=== PATIENT | female | born 1955 | race Caucasian/White ===

== ENCOUNTER 2017-02-16 11:35 | Outpatient (CLI) | payer OTHER ==
--- NOTE | 2017-02-21 16:11 | Mammography Report ---
DIGITAL SCREENING MAMMOGRAM: 02/16/2017. CLINICAL INDICATION: A 61-year-old for screening. COMPARISON: 11/2014, 09/2013, 11/2011, 03/2010, 02/2010. TECHNIQUE: Routine CC and MLO projections were obtained of the breasts. Bilateral Laterally exaggerated craniocaudal views. FINDINGS: The breasts demonstrate scattered fibroglandular densities bilaterally. No suspicious masses, clustered microcalcifications, or regions of architectural distortion are identified. IMPRESSION: Negative examination. RECOMMENDATIONS: Routine annual screening unless otherwise clinically indicated. BI RADS 1 - Negative. STANDARD QUALIFYING STATEMENT 1. This examination was reviewed with the aid of Computed-Aided Detection (CAD). 2. A negative or benign imaging report should not delay biopsy if clinically suspicious findings are present. Consider surgical consultation if warranted. More than 5% of cancers are not identified by imaging. 3. Dense breasts may obscure an underlying neoplasm. TD: 02/20/2017 16:55 CHELSEY
== END 2017-02-16 11:36 | disposition home or self-care (01) ==
LOC: DI.S 11:35
PROVIDERS: ATTEND Physician Assistant
DX: Z12.31 Encounter for screening mammogram for malignant neoplasm of breast (principal)
CPT/HCPCS: 77067

== ENCOUNTER 2017-07-17 16:15 | Outpatient (CLI) | payer OTHER ==
--- NOTE | 2017-07-18 09:18 | XRAY Report ---
THREE-VIEW LEFT FOOT: 07/17/2017 CLINICAL INDICATION: Trauma, pain. FINDINGS: AP, lateral, oblique views of the left foot demonstrate a minimally displaced fracture of the base of the distal phalanx of the great toe, best seen on the oblique projection. No other fracture is appreciated. No radiopaque foreign body is seen in the soft tissues. Small plantar and posterior calcaneal spurs are present. IMPRESSION: MINIMALLY DISPLACED FRACTURE OF THE BASE OF THE DISTAL PHALANX OF THE GREAT TOE. TD: 07/18/2017 09:16
== END 2017-07-17 16:16 | disposition home or self-care (01) ==
LOC: DI.S 16:15
PROVIDERS: ATTEND Family Medicine
DX: S92.422A Displaced fracture of distal phalanx of left great toe, initial encounter for closed fracture (principal)

== ENCOUNTER 2017-08-13 13:23 | Outpatient (CLI) | payer OTHER ==
--- NOTE | 2017-08-14 11:45 | XRAY Report ---
LEFT FOOT, THREE VIEWS: 08/13/2017 HISTORY: Followup fracture. COMPARISON: 07/17/2017. FINDINGS: There is a fracture through the lateral base of the left first distal phalanx involving the peripheral articular surface with partial healing since the preceding study. 1-2 mm of offset along the lateral articular surface is present. The left foot is otherwise stable, again showing a small amount of calcaneal spurring. IMPRESSION: HEALING LEFT FIRST DISTAL PHALANX BASE FRACTURE. SUGGEST FOLLOWUP BY DEDICATED LEFT GREAT TOE IMAGING RATHER THAN THE ENTIRE FOOT. TD: 08/14/2017 11:31
== END 2017-08-13 13:24 | disposition home or self-care (01) ==
LOC: DI.S 13:23
PROVIDERS: ATTEND Physician Assistant
DX: S97.112A Crushing injury of left great toe, initial encounter (principal); S92.422A Displaced fracture of distal phalanx of left great toe, initial encounter for closed fracture

== ENCOUNTER 2017-09-18 08:27 | Outpatient (CLI) | payer OTHER ==
--- NOTE | 2017-09-18 13:21 | XRAY Report ---
Procedure Date: 09/18/2017 Accession Number: [id number] / [id number] Procedure: XRS - Toe(s) LT CPT Code: FULL RESULT: EXAM: Toe(s) LT DATE: 09/18/2017 8:52 AM CLINICAL HISTORY: DISP FX OF DISTAL PHALANX OF UNSPECIFIED GREAT TOE COMPARISON: Left foot 08/13/2017 TECHNIQUE: 3 views. FINDINGS: Bones: Increased callus formation at the fracture of the distal phalanx. Joints: Normal. No subluxations. Soft Tissues: Normal. No soft tissue swelling. IMPRESSION: Healing fracture of the distal phalanx of the great toe. RADIA
== END 2017-09-18 08:28 | disposition home or self-care (01) ==
LOC: DI.S 08:27
PROVIDERS: ATTEND Physician Assistant
DX: S92.422D Displaced fracture of distal phalanx of left great toe, subsequent encounter for fracture with routine healing (principal)
CPT/HCPCS: 73660

== ENCOUNTER 2019-02-28 11:07 | Outpatient (CLI) | payer OTHER ==
--- NOTE | 2019-03-03 09:09 | Mammography Report ---
Reason: ROUTINE MAMMO Procedure Date: 02/28/2019 Accession Number: [id number] / [id number] Procedure: MAIDA - Screening Mammo w/Andrew CPT Code: Final Report FULL RESULT: EXAM: Screening Mammo w/Andrew DATE: 02/28/2019 11:44 AM CLINICAL HISTORY: Screening encounter. TECHNIQUE: (B) - Bilateral CC and MLO views were obtained. COMPARISON: 02/16/2017 through 02/28/2010. PARENCHYMAL PATTERN: (A) - The breast(s) demonstrate(s) scattered fibroglandular densities. FINDINGS: There are no suspicious masses, calcifications, or areas of distortion. IMPRESSION: Negative examination. BI-RADS category 1. RECOMMENDATION: (ANNUAL) - Recommend routine annual screening mammography. BI-RADS CATEGORY: (1) - Negative. STANDARD QUALIFYING STATEMENTS: 1. This examination was not reviewed with the aid of Computer-Aided Detection (CAD). 2. A negative or benign imaging report should not preclude biopsy if clinically suspicious findings are present. 3. Dense breasts may obscure an underlying neoplasm. 4. This examination was reviewed with the aid of 3D breast imaging (tomosynthesis).
== END 2019-02-28 11:08 | disposition home or self-care (01) ==
LOC: DI 11:07
PROVIDERS: ATTEND Physician Assistant
DX: Z12.31 Encounter for screening mammogram for malignant neoplasm of breast (principal)
CPT/HCPCS: 77063; 77067

== ENCOUNTER 2020-03-08 08:29 | Outpatient (CLI) | payer MEDICARE ==
--- NOTE | 2020-03-08 11:31 | Ultrasound Report ---
PROCEDURE: Carotid Doppler Complete INDICATIONS: CAROTID ARTERY STENOSIS TECHNIQUE: Color and pulse Doppler interrogation was performed of both carotid systems, with image documentation and velocity measurements. COMPARISON: None. FINDINGS: Right side: Common carotid artery peak systolic velocity: 69 cm/sec. Internal carotid artery peak systolic velocity: 89 cm/sec. Internal carotid artery end diastolic velocity: 33 cm/sec. External carotid artery peak systolic velocity: 94 cm/sec. ICA/CCA peak systolic ratio: 1.3 . Burkett scale imaging description: Minimal plaque at the bifurcation Percent internal carotid artery stenosis: Less than 50% . Vertebral artery: Flow direction is antegrade. Left side: Common carotid artery peak systolic velocity: 96 cm/sec. Internal carotid artery peak systolic velocity: 96 cm/sec. Internal carotid artery end diastolic velocity: 36 cm/sec. External carotid artery peak systolic velocity: 86 cm/sec. ICA/CCA peak systolic ratio: 1.0 . Burktet scale imaging description: Minimal plaque at the bifurcation Percent internal carotid artery stenosis: Less than 50% . Vertebral artery: Flow direction is antegrade. IMPRESSION: Bilateral, less than 50% ICA stenoses as above The estimate of stenosis included in the report of the imaging study was calculated using the NASCET method Reviewed by: Tang Storey MD on 03/08/2020 11:30 AM PST Approved by: Tang Storey MD on 03/08/2020 11:30 AM PST Station ID: [id number]
== END 2020-03-08 08:30 | disposition home or self-care (01) ==
LOC: DI 08:29
PROVIDERS: ATTEND Registered Nurse
DX: I65.23 Occlusion and stenosis of bilateral carotid arteries (principal)
CPT/HCPCS: 93880

== ENCOUNTER 2020-06-01 15:48 | Outpatient (CLI) | payer MEDICARE ==
--- NOTE | 2020-06-02 15:43 | Ultrasound Report ---
PROCEDURE: Duplex Lwr Ext Arterial LT INDICATIONS: FOOT PUSLE ABSENT TECHNIQUE: Color and pulse Doppler interrogation was performed of the left lower extremity arterial system, with image documentation. COMPARISON: None FINDINGS: Common femoral artery: 121 cm/sec, with biphasic flow. Deep femoral artery: 64 cm/sec, with biphasic and monophasic flow. Proximal superficial femoral artery: 83.2 cm/sec, with biphasic flow. Mid superficial femoral artery: 84.9 cm/sec, with biphasic flow. Distal superficial femoral artery: 106.5 cm/sec, with biphasic flow. Popliteal artery: 63.8 cm/sec, with biphasic flow. Posterior tibial artery: 67.3 cm/sec, with biphasic flow. Anterior tibial artery/dorsalis pedis: 15.6/27.2 cm/sec, with biphasic/biphasic flow. Burkett-scale imaging description: Scattered calcific and soft plaque is noted along the left lower ext remity arterial vasculature, where biphasic waveform pattern of arterial flow is present overall, janie wing no significant stenosis or obstruction. IMPRESSION: The flow velocities and waveform (overall biphasic in appearance) shows a mild degree of arterial ins ufficiency but a source of absence of pulses at the left foot is not found. Depending on the clinical status follow-up by MR angiography runoff evaluation through the aorta and lower extremity vessels b ilaterally. Reviewed by: Esteban Randle MD on 06/02/2020 3:42 PM PDT Approved by: Esteban Randle MD on 06/02/2020 3:42 PM PDT Station ID: [id number]
== END 2020-06-01 15:49 | disposition home or self-care (01) ==
LOC: DI 15:48
PROVIDERS: ATTEND Registered Nurse
DX: R09.89 Other specified symptoms and signs involving the circulatory and respiratory systems (principal)

== ENCOUNTER 2020-08-20 20:25 | Emergency (ER) | payer MEDICARE ==
[2020-08-20 20:48] LABS: BILIRUBIN,URINE NEGATIVE (NEGATIVE); GLUCOSE, URINE (UA) NEGATIVE (NEGATIVE); KETONES,URINE (UA) NEGATIVE (NEGATIVE); LEUKOCYTE ESTERASE, URINE NEGATIVE (NEGATIVE); NITRITE,URINE NEGATIVE (NEGATIVE); OCCULT BLOOD,URINE TRACE-INTA (NEGATIVE); PROTEIN,URINE NEGATIVE (NEGATIVE); UROBILINOGEN,URINE 0.2 (NORMAL) E.U./dL (NORMAL)
[2020-08-20 20:48] LABS: BASOPHILS % (AUTO) 0.4 %; EOSINOPHILS # (AUTO) 0.2 10^3/uL (0.0-0.7); EOSINOPHILS % (AUTO) 2.6 %; HCT - HEMATOCRIT 41.9 % (37.0-47.0); HGB - HEMOGLOBIN 13.9 g/dL (12.0-16.0); LYMPHOCYTES # (AUTO) 2.2 10^3/uL (1.5-3.5); LYMPHOCYTES % (AUTO) 27.7 %; MEAN CORPUSCULAR HEMOGLOBIN 31.1 pg (27.0-31.0); MEAN CORPUSCULAR HGB CONC 33.2 g/dL (32.0-36.0); MEAN CORPUSCULAR VOLUME 93.7 fL (81.0-99.0); MEAN PLATELET VOLUME 8.7 fL (7.9-10.8); MONOCYTES # (AUTO) 0.7 10^3/uL (0.0-1.0); MONOCYTES % (AUTO) 9.1 %; NEUTROPHILS # (AUTO) 4.8 10^3/uL (1.5-6.6); PLT - PLATELET COUNT 293 10^3/uL (130-450); RED BLOOD COUNT 4.47 10^6/uL (4.20-5.40); RED CELL DISTRIBUTION WIDTH 12.2 % (12.0-15.0); WHITE BLOOD COUNT 8.1 x10^3/uL (4.8-10.8)
--- NOTE | 2020-08-20 20:49 | ED Physician Documentation ---
PD HPI ABD PAIN - Stated complaint Stated Complaint: ABD PX - Chief complaint Chief Complaint: Abd Pain - History obtained from History obtained from: Patient - History of Present Illness Timing - onset: How many weeks ago (2) Timing - duration: Weeks (2) Timing - details: Abrupt onset (was traveling by car, to [facility]. [place] no camping nor groundwater drinking. Had some diarrhea at first for day or so, then with formed stools but small clumps of mucous out per rectum. No fever. Nausea at times but otherwise eating okay.), Still present Quality: Cramping, Aching Location: LUQ, Periumbilical, LLQ Radiation: No: Chest, Lower back, Left flank Improved by: BM (with small amounts stool out only.) Worsened by: Palpation. No: Eating, Moving Associated symptoms: Nausea. No: Fever, Vomiting, Diarrhea, Constipation (does not feel constipated per se, but states smaller amount of stool the past week or so.), Dysuria, Loss of appetite, Weight loss Similar symptoms before: Has not had sx before Recently seen: Not recently seen Review of Systems Constitutional: denies: Fever, Chills Nose: denies: Rhinorrhea / runny nose, Congestion Throat: denies: Sore throat Cardiac: denies: Chest pain / pressure Respiratory: denies: Cough GI: reports: Abdominal Pain, Nausea. 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 - Present Medications Home Medications: Ambulatory Orders Medication Instructions Recorded Confirmed Levothyroxine [Synthroid] 88 mcg PO DAILY 06/02/16 08/20/20 Docusate Sodium 100Mg Capsule 100 mg PO DAILY #20 cap 08/20/20 [Colace 100Mg Capsule] Naproxen [EC-Naproxen] 500 mg PO BID #14 08/20/20 hydroCHLOROthiazide [Hydrodiuril] 6.25 mg PO DAILY 08/20/20 08/20/20 - Allergies Allergies/Adverse Reactions: Allergies Allergy/AdvReac Type Severity Reaction Status Date / Time codeine AdvReac Nausea Verified 08/20/20 20:32 - Social History Does the pt smoke?: No Smoking Status: Never smoker Does the pt drink ETOH?: Yes Does the pt have substance abuse?: No - Immunizations Immunizations are current?: No PD ED PE NORMAL - Vitals Vital signs reviewed: Yes - General General: Alert and oriented X 3, No acute distress, Well developed/nourished - HEENT HEENT: Pharynx benign - Neck Neck: Supple, no meningeal sign, No adenopathy - Cardiac Cardiac: RRR, No murmur - Respiratory Respiratory: Clear bilaterally - Abdomen Abdomen: Normal bowel sounds, Soft, Non distended, No organomegaly, Other (tender LUQ and left mid abd without guarding nor percussion tender. Some tender just above umbilicus as well. Not tender RLQ nor gallbladder area.) - Female Female : Deferred - Rectal Rectal: Deferred - Back Back: No CVA TTP - Derm Derm: Normal color, Warm and dry, No rash - Neuro Neuro: Alert and oriented X 3, No motor deficit, Normal speech Results - Vitals Vitals: Vital Signs - 24 hr 08/20/20 08/20/20 08/20/20 20:34 20:36 22:36 Temperature 36.9 C 36.6 C Heart Rate 78 80 Respiratory 18 16 Rate Blood Pressure 194/86 H 155/88 H 148/82 H O2 Saturation 100 100 08/20/20 23:18 Temperature 36.6 C Heart Rate 75 Respiratory 16 Rate Blood Pressure 154/80 H O2 Saturation 100 Oxygen O2 Source Room air - Labs Labs: Laboratory Tests 08/20/20 08/20/20 08/20/20 20:34 20:43 20:43 WBC 8.1 RBC 4.47 Hgb 13.9 Hct 41.9 MCV 93.7 MCH 31.1 H MCHC 33.2 RDW 12.2 Plt Count 293 MPV 8.7 Neut # (Auto) 4.8 Lymph # (Auto) 2.2 [place] # (Auto) 0.7 Eos # (Auto) 0.2 Baso # (Auto) 0.0 Absolute Nucleated RBC 0.00 Nucleated RBC % 0.0 Sodium 138 Potassium 3.1 L Chloride 100 L Carbon Dioxide 28 Anion Gap 10.0 BUN 17 Creatinine 1.0 Estimated GFR (MDRD) 56 L Glucose 100 Calcium 9.8 Total Bilirubin 0.6 AST 20 ALT 20 Alkaline Phosphatase 57 Total Protein 8.6 H Albumin 4.5 Globulin 4.1 Albumin/Globulin Ratio 1.1 Lipase 32 Urine Color YELLOW Urine Clarity CLEAR Urine pH 6.0 Ur Specific [place] 1.010 Urine Protein NEGATIVE Urine Glucose (UA) NEGATIVE Urine Ketones NEGATIVE Urine Occult Blood TRACE-INTA Urine Nitrite NEGATIVE Urine Bilirubin NEGATIVE Urine Urobilinogen 0.2 (NORMAL) Ur Leukocyte Esterase NEGATIVE Ur Microscopic Review NOT INDICATED Urine Culture Comments NOT INDICATED PD MEDICAL DECISION MAKING - ED course Complexity details: reviewed results (CT without acute local finding. Comment on dense stool in colon. No obstruction. ), re-evaluated patient (improved symptoms. Still some cramping at times. CT with some constipation. Does not explain mucous "balls" per rectum. Perhaps some inflammatory colitis and relates to constipation. ), considered differential, d/w patient Departure - Departure Disposition: 01 Home, Self Care Clinical Impression: Abdominal pain Qualifiers: Abdominal location: generalized Qualified Code(s): R10.84 - Generalized abdominal pain Constipation Qualifiers: Constipation type: unspecified constipation type Qualified Code(s): K59.00 - Constipation, unspecified Condition: Stable Instructions: ED Abdominal Pain Unkn Cause Follow-Up: Fani Grant ARNP [Primary Care Provider] - Prescriptions: Docusate Sodium 100Mg Capsule [Colace 100Mg Capsule] 100 mg PO DAILY #20 cap Naproxen [EC-Naproxen] 500 mg PO BID #14 Comments: Your blood count and white count are normal. Your CT scan does not identify any localized area of infection or inflammation. They do comment on some dense fecal material in the colon. This could be causing some of the cramping and pains. However this would not account for the mucus output without there are some element of wall inflammation. As such I would suggest a stool softener with good hydration and also an anti- inflammatory. I wrote prescriptions for these. Stay well-hydrated and regular diet over the next few days. Add Tylenol if needed for pain or cramps. Recheck if not improved well over the next day or 2 and return if worsening. Follow-up with your primary care next week. If you have fevers, vomiting, worse pain, bloody stools, other concerns, return to the ER. Discharge Date/Time: 08/20/20 23:23
[2020-08-20 20:50] LABS: CLARITY,URINE CLEAR (CLEAR)
[2020-08-20 21:03] LABS: ALBUMIN 4.5 g/dL (3.2-5.5); ALBUMIN/GLOBULIN RATIO 1.1 (1.0-2.2); BILIRUBIN,TOTAL 0.6 mg/dL (0.2-1.0); CALCIUM 9.8 mg/dL (8.5-10.3); POTASSIUM 3.1 mmol/L (3.5-5.0); TOTAL PROTEIN 8.6 g/dL (6.7-8.2)
[2020-08-20] MEDS ORDERED: SODIUM CHLORIDE 0.9% 1,000 ML IV STA (21:17)
[2020-08-20] MEDS ORDERED: IOVERSOL 320 100 ML VIAL IVP ONE ×2 (21:31→22:00)
[2020-08-20] MEDS ORDERED: LACTULOSE 10 GM /15 ML UDC PO STA (22:52)
[2020-08-20] MEDS ORDERED: DOCUSATE SODIUM 100 MG CAPSULE PO STA (22:52)
[2020-08-20] MEDS ORDERED: KETOROLAC 30 MG/ML VIAL IVP STA (22:52)
[2020-08-20 23:24] VITALS: BP 154/80
--- NOTE | 2020-08-21 13:52 | CT Report ---
PROCEDURE: Abdomen/Pelvis W INDICATIONS: upper/mid abd pain and mucous stools CONTRAST: IV CONTRAST: Optiray 320 ml: 100 PO CONTRAST: *NO PO CONTRAST TECHNIQUE: After the administration of IV contrast, 5 mm thick sections acquired from the diaphragms to the symp hysis. 5 mm thick coronal and sagittal reformats were acquired. For radiation dose reduction, the f ollowing was used: automated exposure control, adjustment of mA and/or kV according to patient size. COMPARISON: None. FINDINGS: Image quality: Excellent. ABDOMEN: Lung bases: Lung bases are clear. Heart size is normal. A small hiatal hernia is incidentally note d. Solid organs: Liver and spleen are normal in size and enhancement. Mild diffuse fatty liver infiltr ation can be seen. Gallbladder wall does not appear thickened. Biliary system is non dilated. Velez creas enhances normally. No adrenal nodules. Kidneys demonstrate normal size and enhancement, witho ut hydronephrosis. Peritoneum and bowel: Bowel loops demonstrate normal wall thickness and caliber. No free fluid or a ir. Diverticulosis can be seen, without [place] findings of active diverticulitis. A moderate amount o f stool is seen within the proximal colon. Nodes and vessels: No retroperitoneal or mesenteric adenopathy by size criteria. Aorta and inferior vena cava are normal in size. Miscellaneous: No ventral hernias. PELVIS: Genitourinary: Bladder wall thickness is normal. This patient is status post hysterectomy. No adnex al masses can be seen. Miscellaneous: No inguinal hernias or adenopathy. Bones: No suspicious bony lesions. No vertebral body compression fractures. IMPRESSION: There is a moderate amount of stool seen within the proximal colon. Please correlate wit h clinical constipation. Mild sigmoid diverticulosis can be seen, without findings of active diverticulitis. Incidental note is made of: Small hiatal hernia Mild fatty liver infiltration 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 Note: No significant discrepancy from the preliminary report. Reviewed by: Carl Maldonado MD on 08/21/2020 12:51 PM [facility] Approved by: Carl Maldonado MD on 08/21/2020 12:51 PM [facility] Station ID: [id number]
== END 2020-08-20 23:23 | disposition home or self-care (01) ==
LOC: ED 20:25
DX: R10.84 Generalized abdominal pain (principal); K59.00 Constipation, unspecified; I10 Essential (primary) hypertension
CPT/HCPCS: 36415; 74177; 80053; 81003; 83690; 85025; 96374; 99284; A9270; Q9967; 81001; 87086

== ENCOUNTER 2020-11-03 16:35 | Outpatient (CLI) | payer MEDICARE ==
[2020-11-03 20:00] LABS: BILIRUBIN,URINE NEGATIVE (NEGATIVE); CLARITY,URINE CLEAR (CLEAR); GLUCOSE, URINE (UA) NEGATIVE (NEGATIVE); KETONES,URINE (UA) NEGATIVE (NEGATIVE); LEUKOCYTE ESTERASE, URINE TRACE (NEGATIVE); NITRITE,URINE POSITIVE (NEGATIVE); OCCULT BLOOD,URINE SMALL (NEGATIVE); PH,URINE 5.5 PH (5.0-7.5); PROTEIN,URINE TRACE mg/dL (NEGATIVE); UROBILINOGEN,URINE 0.2 (NORMAL) E.U./dL (NORMAL)
[2020-11-03 20:14] LABS: BACTERIA,URINE Many /HPF (None Seen); RBC,URINE 0-5 /HPF (0-5); SQUAMOUS EPITHELIAL CELL,UR FEW Squamous (<= Few); WBC,URINE >25 /HPF (0-5)
== END 2020-11-03 23:59 | disposition home or self-care (01) ==
LOC: LAB.S 16:35
PROVIDERS: ATTEND Emergency Medicine
DX: R30.0 Dysuria (principal)
CPT/HCPCS: 81001; 87077; 87086; 87181

== ENCOUNTER 2020-11-16 12:40 | Outpatient (CLI) | payer MEDICARE ==
[2020-11-16 14:44] LABS: BILIRUBIN,URINE NEGATIVE (NEGATIVE); GLUCOSE, URINE (UA) NEGATIVE (NEGATIVE); KETONES,URINE (UA) NEGATIVE (NEGATIVE); LEUKOCYTE ESTERASE, URINE NEGATIVE (NEGATIVE); NITRITE,URINE NEGATIVE (NEGATIVE); OCCULT BLOOD,URINE NEGATIVE (NEGATIVE); PH,URINE 7.5 PH (5.0-7.5); PROTEIN,URINE NEGATIVE (NEGATIVE); UROBILINOGEN,URINE 0.2 (NORMAL) E.U./dL (NORMAL)
[2020-11-16 14:45] LABS: CLARITY,URINE CLEAR (CLEAR)
[2020-11-16 14:49] LABS: BACTERIA,URINE None Seen /HPF (None Seen); RBC,URINE 0-5 /HPF (0-5); SQUAMOUS EPITHELIAL CELL,UR RARE Squamous (<= Few); WBC,URINE 0-3 /HPF (0-5)
== END 2020-11-16 12:41 | disposition home or self-care (01) ==
LOC: LAB.S 12:40
PROVIDERS: ATTEND Emergency Medicine
DX: R30.0 Dysuria (principal)
CPT/HCPCS: 81001; 87086

== ENCOUNTER 2021-03-20 12:15 | Outpatient (CLI) | payer MEDICARE ==
--- NOTE | 2021-03-21 15:48 | Mammography Report ---
BILATERAL DIGITAL SCREENING MAMMOGRAM 3D/2D: 03/20/2021 CLINICAL: Routine screening. Comparison is made to exams dated: 02/28/2019 mammogram, 02/16/2017 mammogram, 11/10/2014 mammogram, mammogram, 11/24/2011 mammogram, and 03/12/2010 mammogram - [facility]. There are scattered fibroglandular elements in both breasts. No significant masses, calcifications, or other findings are seen in either breast. There has been no significant interval change. IMPRESSION: NEGATIVE There is no mammographic evidence of malignancy. A 1 year screening mammogram is recommended. This exam was interpreted at Station ID: [id number]. NOTE: For mammograms, a report in lay terms will be sent to the patient. Approximately 15% of breast malignancies will not be visualized mammographically. In the management of a palpable breast mass, a negative mammogram must not discourage biopsy of a clinically suspicious lesion. Electronically Signed By: Yoni grimes/margaux:03/20/2021 22:39:05 ACR BI-RADS Category 1: Negative [id number] PARENCHYMAL PATTERN: (A) - The breast(s) demonstrate(s) scattered fibroglandular densities. BI-RADS CATEGORY: (1) - 1 RECOMMENDATION: (ANNUAL) - Recommend routine annual screening mammography. [id number] 1 year screening LATERALITY: (B)
== END 2021-03-20 12:16 | disposition home or self-care (01) ==
LOC: DI.S 12:15
PROVIDERS: ATTEND Registered Nurse
DX: Z12.31 Encounter for screening mammogram for malignant neoplasm of breast (principal)

== ENCOUNTER 2021-03-29 08:13 | Outpatient (CLI) | payer MEDICARE ==
--- NOTE | 2021-03-29 18:38 | DEXA Report ---
PROCEDURE: Dexa Spine and/or Hip INDICATIONS: OSTEOPENIA TECHNIQUE: Dual energy x-ray absorptiometry (DXA) was performed on a [employer]. Regions measur ed are the AP Spine, femoral neck, and if needed forearm. COMPARISON: . FINDINGS: Lumbar Spine: Bone Mineral Density 1.170 g/cm/cm,T score -0.1, normal Left Hip: Bone Mineral Density 0.839 g/cm/cm,T score -1.3, osteopenia Left Femoral Neck: Bone Mineral Density 0.782 g/cm/cm, T score -1.8, osteopenia (T score greater or equal to -1.0: NORMAL) (T score from -1.1 to -2.4: OSTEOPENIA) (T score less than or equal to -2.5 to: OSTEOPOROSIS) Impression: Osteopenia. Bone marrow density is decreased 3.9% interval since prior exam obtained 11/08. Patients with diagnosis of osteoporosis or osteopenia should have regular bone mineral density assess ment. For those eligible for Medicare, routine testing is allowed once every 2 years. Testing frequ ency can be increased for patients who have rapidly progressing disease or for those who are receivin g medical therapy to restore bone mass. Reviewed by: Anila Garica MD, PhD on 03/29/2021 5:[address] [facility] Approved by: Anila Garcia MD, PhD on 03/29/2021 5:[address] [facility] Station ID: [id number]
== END 2021-03-29 08:14 | disposition home or self-care (01) ==
LOC: DI 08:13
PROVIDERS: ATTEND Registered Nurse
DX: M85.89 Other specified disorders of bone density and structure, multiple sites (principal)

== ENCOUNTER 2021-04-21 11:56 | Outpatient (CLI) | payer MEDICARE ==
--- NOTE | 2021-04-21 13:22 | XRAY Report ---
PROCEDURE: Hand 3 View BILAT INDICATIONS: OSTEOARTHRITIS TECHNIQUE: 4 views of the left hand and 3 views of the right hand acquired. COMPARISON: None. FINDINGS: Bones: No acute fractures or dislocations. No suspicious bony lesions. Multifocal joint space narro wing is seen throughout the interphalangeal joints of the fingers, worst in the left fifth proximal a nd distal interphalangeal joints and the bilateral first interphalangeal joints. There appears to be ankylosis of the left fifth distal interphalangeal joint. Intra-articular lucencies in the fifth prox imal phalangeal head most likely degenerative than secondary to erosions. Soft tissues: No suspicious soft tissue calcifications. IMPRESSION: Bilateral arthritic changes throughout the fingers that is worst at the left fifth proximal interphal angeal joint and the bilateral first interphalangeal joints. 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 Findings are most likely secondary to primary osteoarthrosis, al though a chronic inflammatory arthropathy with secondary degenerative changes is not entirely exclude d. Reviewed by: Selwyn Akers MD on 04/21/2021 1:20 PM PST Approved by: Selwyn Akers MD on 04/21/2021 1:20 PM PST Station ID: [id number]
== END 2021-04-21 11:57 | disposition home or self-care (01) ==
LOC: DI.S 11:56
PROVIDERS: ATTEND Registered Nurse
DX: M19.041 Primary osteoarthritis, right hand (principal); M19.042 Primary osteoarthritis, left hand

== ENCOUNTER 2022-02-08 08:00 | Outpatient (CLI) | payer MEDICARE | END 2022-02-08 23:59 | disposition home or self-care (01) | LOC: LAB 08:00 | PROVIDERS: ATTEND Registered Nurse | DX: N30.90 Cystitis, unspecified without hematuria (principal) | CPT/HCPCS: 87086 ==

== ENCOUNTER 2022-03-31 14:51 | Outpatient (CLI) | payer MEDICARE ==
--- NOTE | 2022-03-31 17:20 | Ultrasound Report ---
PROCEDURE: Carotid Doppler Complete INDICATIONS: CAROTID ARTERY STENOSIS TECHNIQUE: Color and pulse Doppler interrogation was performed of both carotid systems, with image documentation and velocity measurements. COMPARISON: Carotid ultrasound 03/08/2020 FINDINGS: Right side: Brachial blood pressure: 175/80 mm Hg. Common carotid artery peak systolic velocity: 65 cm/sec. Internal carotid artery peak systolic velocity: 83 cm/sec. Internal carotid artery end diastolic velocity: 20 cm/sec. External carotid artery peak systolic velocity: 77 cm/sec. ICA/CCA peak systolic ratio: 1.3 . Burkett scale imaging description: Significant plaque is present Percent internal carotid artery stenosis: Less than 50% stenosis, unchanged . Vertebral artery: Flow direction is antegrade. Left side: Brachial blood pressure: 22/75 mm Hg. Common carotid artery peak systolic velocity: 76 cm/sec. Internal carotid artery peak systolic velocity: 85 cm/sec. Internal carotid artery end diastolic velocity: 29 cm/sec. External carotid artery peak systolic velocity: 82 cm/sec. ICA/CCA peak systolic ratio: 1.1 . Burkett scale imaging description: Significant plaque is present. Percent internal carotid artery stenosis: Less than 50% stenosis, unchanged . Vertebral artery: Flow direction is antegrade. IMPRESSION: Unchanged less than 50% stenosis of the internal carotid arteries bilaterally. The estimate of stenosis included in the report of the imaging study was calculated using the NASCET method Reviewed by: Therese Martines MD on 03/31/2022 5:19 PM PST Approved by: Therese Martines MD on 03/31/2022 5:19 PM PST Station ID: [id number]
== END 2022-03-31 14:52 | disposition home or self-care (01) ==
LOC: DI 14:51
PROVIDERS: ATTEND Registered Nurse
DX: I65.29 Occlusion and stenosis of unspecified carotid artery (principal)
CPT/HCPCS: 93880

== ENCOUNTER 2022-06-28 07:00 | Outpatient (CLI) | payer MEDICARE ==
[2022-06-28 14:16] LABS: BILIRUBIN,URINE NEGATIVE (NEGATIVE); GLUCOSE, URINE (UA) NEGATIVE (NEGATIVE); KETONES,URINE (UA) NEGATIVE (NEGATIVE); LEUKOCYTE ESTERASE, URINE TRACE (NEGATIVE); NITRITE,URINE POSITIVE (NEGATIVE); OCCULT BLOOD,URINE NEGATIVE (NEGATIVE); PROTEIN,URINE TRACE mg/dL (NEGATIVE); UROBILINOGEN,URINE 1 (NORMAL) E.U./dL (NORMAL)
[2022-06-28 14:23] LABS: BACTERIA,URINE Many /HPF (None Seen); CLARITY,URINE CLEAR (CLEAR); RBC,URINE 0-5 /HPF (0-5); SQUAMOUS EPITHELIAL CELL,UR FEW Squamous (<= Few)
== END 2022-06-28 23:59 | disposition home or self-care (01) ==
LOC: LAB.S 07:00
PROVIDERS: ATTEND Emergency Medicine
DX: R30.0 Dysuria (principal)
CPT/HCPCS: 81001; 87086; 87181

== ENCOUNTER 2023-02-15 05:50 | Emergency (ER) | payer MEDICARE ==
[2023-02-15 07:06] LABS: BILIRUBIN,URINE NEGATIVE (NEGATIVE); GLUCOSE, URINE (UA) NEGATIVE (NEGATIVE); KETONES,URINE (UA) NEGATIVE (NEGATIVE); LEUKOCYTE ESTERASE, URINE NEGATIVE (NEGATIVE); NITRITE,URINE NEGATIVE (NEGATIVE); OCCULT BLOOD,URINE NEGATIVE (NEGATIVE); PROTEIN,URINE TRACE mg/dL (NEGATIVE); UROBILINOGEN,URINE 0.2 (NORMAL) E.U./dL (NORMAL)
[2023-02-15 07:10] LABS: CLARITY,URINE CLEAR (CLEAR)
--- NOTE | 2023-02-15 07:16 | ED Physician Documentation ---
PD HPI ABD PAIN - Stated complaint Stated Complaint: BACK PX - Chief complaint Chief Complaint: Back Pain - History obtained from History obtained from: Patient - History of Present Illness Timing - onset: Last night (about 2 am) Timing - duration: Hours Timing - details: Abrupt onset, Still present Quality: Cramping, Aching, Pain Location: RLQ Radiation: Right flank (primarily in right flank area) Improved by: No: Laying still, Position Worsened by: No: Moving, Position, Palpation Associated symptoms: Nausea, Vomiting, Loss of appetite. No: Fever, Diarrhea, Constipation, Dysuria, Hematuria Similar symptoms before: Diagnosis (has had UTIs and pyelonephritis in the past several times. On Macrobid daily as preventive. No history of kidney stones nor aortic problems.) Recently seen: Not recently seen Review of Systems Constitutional: denies: Fever, Chills, Myalgias Nose: denies: Rhinorrhea / runny nose, Congestion Throat: denies: Sore throat Respiratory: denies: Cough GI: reports: Abdominal Pain Skin: denies: Rash, Lesions Musculoskeletal: denies: Back pain PD PAST MEDICAL HISTORY - Past Medical History Past Medical History: Yes Cardiovascular: Hypertension Respiratory: None Neuro: None Endocrine/Autoimmune: None GI: None : Chronic bladder infection, Other Other Past Medical History: Chronic UTI - Past Surgical History 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, 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 - Present Medications Home Medications: Ambulatory Orders Medication Instructions Recorded Confirmed Levothyroxine [Synthroid] 88 mcg PO DAILY 06/03/15 02/15/23 hydroCHLOROthiazide [Hydrodiuril] 6.25 mg PO DAILY 08/20/20 02/15/23 HYDROcod/ACETAM 5/325 [[place] 5/325] 1 ea PO Q6H PRN #12 tablet 02/15/23 Meloxicam [Mobic] 7.5 mg PO BID 10 Days #20 tablet 02/15/23 Nitrofurantoin Macrocrystal 50 mg PO DAILY 02/15/23 02/15/23 [Macrodantin] Ondansetron Odt [Zofran] 4 mg TL Q6H PRN #10 tablet 02/15/23 cephALEXin [Keflex] 500 mg PO TID #30 cap 02/15/23 - Allergies Allergies/Adverse Reactions: Allergies Allergy/AdvReac Type Severity Reaction Status Date / Time codeine AdvReac Nausea Verified 02/15/23 06:03 - Social History Does the pt smoke?: No Smoking Status: Never smoker Does the pt drink ETOH?: Yes Does the pt have substance abuse?: No - Immunizations Immunizations are current?: No - POLST Patient has POLST: No PD ED PE NORMAL - Vitals Vital signs reviewed: Yes - General General: Alert and oriented X 3, Well developed/nourished, Other (appears in significant pain right flank) - Cardiac Cardiac: RRR, No murmur - Respiratory Respiratory: No respiratory distress, Clear bilaterally - Abdomen Abdomen: Normal bowel sounds, Soft, Non distended, No organomegaly, Other (tender without guarding right mid abdomen, not in upper GB area itself. Moderate right CVA tenderness. No rash nor sores. ) - Back Back: No spinal TTP - Derm Derm: Normal color, Warm and dry - Neuro Neuro: Alert and oriented X 3, No motor deficit, Normal speech Results - Vitals Vitals: Vital Signs - 24 hr 02/15/23 02/15/23 02/15/23 05:58 05:59 08:50 Temperature 36.4 C L 36.4 C L Heart Rate 75 75 54 L Respiratory 18 18 20 Rate Blood Pressure 195/87 H 195/87 H O2 Saturation 100 100 96 02/15/23 02/15/23 02/15/23 10:30 12:00 13:45 Temperature 35.4 C L Heart Rate 81 59 L 64 Respiratory 18 18 18 Rate Blood Pressure 158/77 H 152/74 H 154/72 H O2 Saturation 95 98 100 Oxygen O2 Source Room air - Labs Labs: Laboratory Tests 02/15/23 02/15/23 02/15/23 06:47 06:55 06:55 WBC 10.9 H RBC 4.46 Hgb 13.8 Hct 41.7 MCV 93.5 MCH 30.9 MCHC 33.1 RDW 11.9 L Plt Count 303 MPV 8.9 Neut # (Auto) 8.5 H Lymph # (Auto) 1.5 [place] # (Auto) 0.7 Eos # (Auto) 0.1 Baso # (Auto) 0.1 Absolute Nucleated RBC 0.00 Nucleated RBC % 0.0 Sodium 140 Potassium 3.5 Chloride 104 Carbon Dioxide 28 Anion Gap 8.0 BUN 13 Creatinine 1.3 Estimated GFR (MDRD) 41 L Glucose 105 H Calcium 10.1 Total Bilirubin 0.4 AST 17 ALT 13 Alkaline Phosphatase 44 Total Protein 7.9 Albumin 4.3 Globulin 3.6 Albumin/Globulin Ratio 1.2 Lipase 394 H Urine Color YELLOW Urine Clarity CLEAR Urine pH 6.0 Ur Specific [place] <=1.005 Urine Protein TRACE Urine Glucose (UA) NEGATIVE Urine Ketones NEGATIVE Urine Occult Blood NEGATIVE Urine Nitrite NEGATIVE Urine Bilirubin NEGATIVE Urine Urobilinogen 0.2 (NORMAL) Ur Leukocyte Esterase NEGATIVE Ur Microscopic Review NOT INDICATED Urine Culture Comments NOT INDICATED - Rads (name of study) abd/pelvic CT Relevant Findings:: Prelim report reviewed (no kidney stones nor hydro. There is perinephric inflammation on right c/w pyelonephritis or paranephric infection. No abscess. ), EMP independent interpretation of test PD Medical Decision Making - ED course Complexity details: considered differential (abrupt right flank pain to consider kidney stone, infection, aortic process, ascending colitis, other processes. Can get labs, UA,a nd CT. ), d/w patient Reviewed Lab Results: The urine does not show obvious infection. She is on Macrobid daily as preventive so could be less domstrative than would otheerwise be due to that. Still consider pyelo. Lipase is elevated but not tender/pain in that area. Will also be able to eval with CT. CT gotten after pt given IV meds for pain and nausea, Zofran, toradol, Dilaudid. Improved pain, but nausea persists. Given then Inapsine with some improvement. Notes the nausea now from a vertigo sensation that she gets at times. Diazepam given 2 mg IV with much better success at lowering the nausea/vertigo. CT showing paranephric infection without stone nor hydronephritis. I would consider it infectious and dose with antibiotic as well as NSAIDs and pain meds. Rocephin given IV. She is able to take fluids PO. Pain is reduced enough for the patient and declines more pain meds. On her labs, the lipase is elevated but not LFTs and the CT shows normal pancreas and CBD. She drinks just one glass wine or so daily in evening. I reviewed her medications and the macrobid does have pancreatitis/elevated enzymes as a listed side effect, so consider that as cause and have pt stop/hold it for 1-2 weeks and discuss with PCP/Urologist. Since the UA is not showing infection itself, there will not be a urine culture to follow on abx choice, so advised pt we would need to follow degree of symptoms resolution as success on the infection or not. Departure - Departure Disposition: 01 Home, Self Care Clinical Impression: Pyelonephritis of right kidney, Elevated lipase, Right flank pain, Nausea and vomiting Condition: Stable Record reviewed to determine appropriate education?: Yes Instructions: ED Kidney Infec Female Prescriptions: cephALEXin [Keflex] 500 mg PO TID #30 cap Meloxicam [Mobic] 7.5 mg PO BID 10 Days #20 tablet HYDROcod/ACETAM 5/325 [[place] 5/325] 1 ea PO Q6H PRN #12 tablet PRN Reason: Pain Ondansetron Odt [Zofran] 4 mg TL Q6H PRN #10 tablet PRN Reason: Nausea / Vomiting Comments: Your urine does not show any obvious infection but there is CT scan does show localized inflammation around the right kidney consistent with pyelonephritis/perinephric infection. The urine itself may be not as obviously affected given the nitrofurantoin that you take daily. However does not have good penetration into tissue and so you can still develop kidney infection and such even though on it. You do have an elevation of your lipase on blood test as well. The CT scan does not show any pancreatic inflammation or abnormality. The nitrofurantoin that you take can cause inflammation of the pancreas so I wonder if it is caused by that. At this point I would have you discontinue your nitrofurantoin. You would want to have your blood test for the lipase rechecked in a week or so to see if its improved. Discuss further treatment options as preventive for your infections with your provider. Regarding the current infection, we can treat with cephalexin antibiotic which is typically effective for kidney infections. Since your urine is clear we will be able to determine exactly based on culture so we will have to go with clinical findings of how well you are improved over the next several days. I also added prescriptions for some anti-inflammatories and nausea medicine and pain medicine. I sent your prescriptions to [facility] in [place]. My narcotic instructions I am prescribing a short course of narcotic pain medication for you. These are potentially dangerous and addictive medications that should be used carefully. These medications may constipate you. Take an [id number] stool softener such as docusate twice daily with plenty of water while taking these medications. If you go 24 hours without a bowel movement, take gssl-ukk-uppodma MiraLAX, per package instructions. Do not drink or drive while taking these medications. If you received narcotic or sedating medications while in the emergency department do not drive for 24 hours. Store this medication in a safe, secure place and out of reach of children. It is a violation of federal law to give or sell this medication to another person or to use in a manner other than prescribed. The ED will not refill narcotic prescriptions, including prescriptions lost or stolen. You can dispose of unwanted medications at the [facility]'s office or at several pharmacies such as [facility]. So summary points for treatment: 1. Cephalexin 3 times daily for 10 days for the kidney infection 2. Stop your nitrofurantoin 3. Stay well-hydrated. Tylenol 500 to 650 mg 4 times daily as needed for pain and add hydrocodone if needed for worse pain. 4. Anti-inflammatory meloxicam twice daily with food for pain and inflammation. 5. Ondansetron if needed for nausea. 6. Follow-up with your primary care for repeat testing of your blood lipase and also reevaluating on your current symptoms. Discharge Date/Time: 02/15/23 14:05
[2023-02-15 07:17] LABS: ALBUMIN 4.3 g/dL (3.2-5.5); ALBUMIN/GLOBULIN RATIO 1.2 (1.0-2.2); BILIRUBIN,TOTAL 0.4 mg/dL (0.2-1.0); CALCIUM 10.1 mg/dL (8.5-10.3); CREATININE 1.3 mg/dL (0.6-1.3); POTASSIUM 3.5 mmol/L (3.5-4.5); TOTAL PROTEIN 7.9 g/dL (6.4-8.9)
[2023-02-15] MEDS ORDERED: HYDROmorphone 1 MG/ML CARPUJECT IVP STA (07:29)
[2023-02-15] MEDS ORDERED: KETOROLAC 15 MG/ML VIAL IVP STA (07:29)
[2023-02-15] MEDS ORDERED: ONDANSETRON 4 MG/2 ML VIAL IVP STA ×2 (07:29→13:01)
[2023-02-15 07:30] LABS: BASOPHILS # (AUTO) 0.1 10^3/uL (0.0-0.1); BASOPHILS % (AUTO) 0.5 %; EOSINOPHILS # (AUTO) 0.1 10^3/uL (0.0-0.7); EOSINOPHILS % (AUTO) 1.1 %; HCT - HEMATOCRIT 41.7 % (37.0-47.0); HGB - HEMOGLOBIN 13.8 g/dL (12.0-16.0); LYMPHOCYTES # (AUTO) 1.5 10^3/uL (1.5-3.5); LYMPHOCYTES % (AUTO) 13.3 %; MEAN CORPUSCULAR HEMOGLOBIN 30.9 pg (27.0-31.0); MEAN CORPUSCULAR HGB CONC 33.1 g/dL (32.0-36.0); MEAN CORPUSCULAR VOLUME 93.5 fL (81.0-99.0); MEAN PLATELET VOLUME 8.9 fL (7.9-10.8); MONOCYTES # (AUTO) 0.7 10^3/uL (0.0-1.0); MONOCYTES % (AUTO) 6.8 %; NEUTROPHILS # (AUTO) 8.5 10^3/uL (1.5-6.6); PLT - PLATELET COUNT 303 10^3/uL (130-450); RED BLOOD COUNT 4.46 10^6/uL (4.20-5.40); RED CELL DISTRIBUTION WIDTH 11.9 % (12.0-15.0); WHITE BLOOD COUNT 10.9 x10^3/uL (4.8-10.8)
[2023-02-15] MEDS ORDERED: iohexoL-300 100 ML VIAL IVP ONE (08:16)
--- NOTE | 2023-02-15 08:40 | CT Report ---
PROCEDURE: ABDOMEN/PELVIS W INDICATIONS: right flank to right mid abd pain since 2 am CONTRAST: 100ml omni 300 TECHNIQUE: After the administration of intravenous contrast, 5 mm thick sections acquired from the diaphragms to the symphysis. 5 mm thick coronal and sagittal reformats were acquired. For radiation dose reducti on, the following was used: automated exposure control, adjustment of mA and/or kV according to sly ent size. COMPARISON: 08/20/2020 FINDINGS: Image quality: Excellent. Lung bases and heart: Unremarkable. Liver: No solid mass. Gallbladder and biliary tree: Gallbladder is somewhat distended without wall thickening or calcified stones. Spleen: No splenomegaly. Pancreas: No pancreatic ductal dilation. Adrenals: No adrenal nodule. Kidneys and ureters: There is right perinephric fluid present which was not present on the previous s tudy. However, the right kidney itself is unremarkable, within normal enhancement pattern, with no st ones or hydronephrosis. Right kidney and left kidney and ureter are unremarkable. Bowel and peritoneum: No bowel distension. No pathologic free fluid. Lymph nodes: No central or retroperitoneal adenopathy. Vessels: No infrarenal aortic aneurysm. PELVIS Reproductive organs: Uterus is surgically absent. No adnexal masses.. Bladder: No abnormal wall thickening, accounting for underdistension. Pelvic lymph nodes: No pelvic adenopathy by size criteria. Bones: No aggressive osseous abnormality. There is a degree of canal stenosis at L3-L4 and L4-L5. Other: No significant ventral or inguinal hernia. IMPRESSION: 1. There is perinephric fluid adjacent to the right kidney, presumed to be an acute finding. The righ t kidney itself is unremarkable. Recommend correlation with laboratory values and clinical examinatio n for possible findings suggesting right pyelonephritis and pararenal infection. 2. No other acute findings. 3. Incidental note made of lumbar canal stenosis. 4. Remote hysterectomy. 5. Somewhat distended gallbladder. Reviewed by: Chad Hancock MD on 02/15/2023 8:39 AM PST Approved by: Chad Hancock MD on 02/15/2023 8:39 AM PST Station ID: [id number]
[2023-02-15] MEDS ORDERED: cefTRIAXone 1 GM VIAL IVP STA (08:56)
[2023-02-15] MEDS ORDERED: DROPERIDOL 5 MG/2 ML VIAL IVP STA (09:22)
[2023-02-15] MEDS ORDERED: SODIUM CHLORIDE 0.9% 1,000 ML IV STA (10:21)
[2023-02-15] MEDS ORDERED: diazePAM INJ 5 MG/ML SYRINGE IVP STA (13:29)
[2023-02-15 13:52] VITALS: BP 154/72; O2SAT 100
== END 2023-02-15 14:05 | disposition home or self-care (01) ==
LOC: ED 05:50
DX: N12 Tubulo-interstitial nephritis, not specified as acute or chronic (principal); R74.8 Abnormal levels of other serum enzymes; I10 Essential (primary) hypertension
CPT/HCPCS: 36415; 74177; 80053; 81003; 83690; 85025; 96374; 96375; 99284; 99285; J1170; Q9967; 81001; 87086

== ENCOUNTER 2023-03-26 22:27 | Emergency (ER) | payer MEDICARE ==
--- NOTE | 2023-03-26 23:07 | ED Physician Documentation ---
PD HPI BACK PAIN - Stated complaint Stated Complaint: BACK PAIN - Chief complaint Chief Complaint: Back Pain - History obtained from History obtained from: Patient - Additional information Additional information: HPI from patient. Patient complains of right low back pain that radiates to her right hip and down the anterior aspect of her upper leg to mid-thigh. This began last night while at rest. She denies injury although she says she was undertaking more activity than typical 2 days ago including some heavy lifting. Patient says she has recurrent sciatic back pain but this has always been left low back pain. She does not feel any similarity regarding tonight symptoms compared to her recurrent left sided back pain.Patient saw her chiropractor earlier today which did not result in any improvement in her symptoms.The pain is distinctly worse with movement involving the lower back and the right leg at the hip. The pain is also worse with weight-bearing including standing as well as simply sitting. Denies fever, dysuria, urinary frequency. Denies urinary/bowel incontinence, denies numbness. She does not note specific weakness although she did feel like her RLE was "buckling from under me" (per patient) with weight-bearing this evening. She is BIBA and received IV toradol en route by EMS without improvement. 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 - Present Medications Home Medications: Ambulatory Orders Medication Instructions Recorded Confirmed Levothyroxine [Synthroid] 88 mcg PO DAILY 06/03/15 03/26/23 hydroCHLOROthiazide [Hydrodiuril] 12.5 mg PO DAILY 08/20/20 03/27/23 HYDROcod/ACETAM 5/325 [[place] 5/325] 1 ea PO Q6H PRN #12 tablet 02/15/23 Meloxicam [Mobic] 7.5 mg PO BID 10 Days #20 tablet 02/15/23 Aspirin [Aspirin EC] 81 mg PO DAILY 03/26/23 03/26/23 - Allergies Allergies/Adverse Reactions: Allergies Allergy/AdvReac Type Severity Reaction Status Date / Time codeine AdvReac Emesis Verified 03/26/23 22:45 - Social History Does the pt smoke?: No Smoking Status: Never smoker Does the pt drink ETOH?: Yes Does the pt have substance abuse?: No - Immunizations Immunizations are current?: No - POLST Patient has POLST: No PD ED PE NORMAL - Vitals Vital signs reviewed: Yes - General General: Alert and oriented X 3, Well developed/nourished, Other (appears uncomfortable at rest and obvious painful discomfort with movement involving lower back and/or RLE) - Cardiac Cardiac: RRR, No murmur - Respiratory Respiratory: No respiratory distress, Clear bilaterally - Abdomen Abdomen: Soft, Non distended, Other (RLQ TTP without guarding or rebound) - Back Back: No CVA TTP, No spinal TTP - Derm Derm: Normal color, Warm and dry, Other (faint rash lower right flank which patient says has been there for many years) - Neuro Neuro: Alert and oriented X 3, No motor deficit (5/5 RLE dorsi/plantarflexion. ), No sensory deficit (LTS intact BLE) Results - Vitals Vitals: Vital Signs - 24 hr 03/26/23 03/26/23 03/27/23 22:38 23:30 00:00 Temperature 37.3 C Heart Rate 69 83 88 Respiratory 17 17 16 Rate Blood Pressure 193/91 H 167/71 H 154/66 H O2 Saturation 100 100 100 03/27/23 03/27/23 03/27/23 02:25 03:00 05:00 Temperature Heart Rate 88 86 94 Respiratory 18 16 Rate Blood Pressure 170/67 H 150/70 H 138/73 H O2 Saturation 100 96 95 03/27/23 03/27/23 03/27/23 05:32 07:28 09:21 Temperature Heart Rate 74 95 83 Respiratory 15 16 Rate Blood Pressure 145/80 H 161/81 H 170/79 H O2 Saturation 95 95 100 Oxygen O2 Source Room air - Labs Labs: Laboratory Tests 03/26/23 03/26/23 03/26/23 00:00 23:39 23:39 WBC 10.3 RBC 4.51 Hgb 14.0 Hct 42.2 MCV 93.6 MCH 31.0 MCHC 33.2 RDW 12.0 Plt Count 299 MPV 8.9 Neut # (Auto) 8.3 H Lymph # (Auto) 1.2 L [place] # (Auto) 0.7 Eos # (Auto) 0.1 Baso # (Auto) 0.0 Absolute Nucleated RBC 0.00 Nucleated RBC % 0.0 Sodium 140 Potassium 3.5 Chloride 104 Carbon Dioxide 26 Anion Gap 10.0 BUN 16 Creatinine 0.8 Estimated GFR (MDRD) 71 L Glucose 120 H Calcium 9.2 Total Bilirubin 0.3 AST 16 ALT 12 Alkaline Phosphatase 47 Total Protein 7.6 Albumin 4.2 Globulin 3.4 Albumin/Globulin Ratio 1.2 Lipase 34 Urine Color YELLOW Urine Clarity CLEAR Urine pH 7.0 Ur Specific [place] 1.015 Urine Protein TRACE Urine Glucose (UA) NEGATIVE Urine Ketones NEGATIVE Urine Occult Blood NEGATIVE Urine Nitrite NEGATIVE Urine Bilirubin NEGATIVE Urine Urobilinogen 0.2 (NORMAL) Ur Leukocyte Esterase NEGATIVE Ur Microscopic Review NOT INDICATED Urine Culture Comments NOT INDICATED - Rads (name of study) CT A/P with IV contrast Relevant Findings:: Prelim report reviewed, See rad report PD Medical Decision Making - ED course Complexity details: reviewed results, re-evaluated patient, considered differential, d/w patient ED course: Unremarkable results on CBC, ER abdominal panel, urinalysis. On exam, she is presently tender in the right lower quadrant given her chief complaint is right lower back pain rating to the right hip and down the right anterior thigh. Thus, a CT of the abdomen pelvis with intravenous contrast is undertaken. However, there are no concerning or diagnostic findings on this study. Patient is in obvious painful discomfort at rest on my initial exam, significantly worse with movement involving her lower back. She had a similar presentation in the last month testing at that time was mostly unremarkable, although right perinephric edema and stranding was found and that she was treated for possible pyelonephritis despite urinalysis not reflective of UTI. She did not have UTI symptoms at that time, and is not certain if the antibiotic (cephalexin) resulted in improvement symptoms. However, she says she did feel significantly better 2 to 3 days into the antibiotic course. She says that the medication given on this previous visit caused significant nausea and vomiting for at least 8 hours. In reviewing the chart, I see that she was given 1 mg of IV Dilaudid, which would be the most likely culprit of those symptoms. Along these lines, she is very reluctant to have narcotic/opiate pain medication but agrees that at this time her pain is beyond control of [id number]-[id number] analgesics. She says she already took 1 g of acetaminophen earlier tonight without relief. She also took 10 mg Valium p.o. which she had prescribed in the past for vertigo. We discussed options for analgesia and I recommendation was low-dose morphine IV along with ondansetron, with plan to titrate up the morphine according to her symptoms as well as side effects. She had modest and transient improvement with 2 mg IV morphine, required redosing and, after we discussed brief dosing, she is given 4 mg IV morphine. The second dose similarly brought modest and transient improvement. As she further describes her symptoms, and in light of the unremarkable tests thus far, and increasing suspicion of nerve impingement of the lower back such as from spinal stenosis. She was thus given 10 mg IV Decadron, Lidoderm patch is placed on her lower back, and she is also given 10 mg p.o. Flexeril. Unfortunately, none of these had the desired effect of adequate pain relief. She was able to stand and pivot to the bedside commode, but she tells me that the pain is actually worse than when she first arrived and was, once again, noticeably worse when she was sitting on the commode. Plan is to obtain lumbar MRI later today when available and reevaluate. Care of patient is turned over to oncoming ED physician (Dr. Swain) at end of my shift
[2023-03-26] MEDS ORDERED: iohexoL-300 100 ML VIAL ONE (23:34)
[2023-03-26] MEDS: ONDANSETRON 4 MG/2 ML VIAL IVP STA (23:42)
[2023-03-26] MEDS: MORPHINE 2 MG/ML CARPUJECT IVP STA (23:42)
[2023-03-26] MEDS: SODIUM CHLORIDE 0.9% 1,000 ML IV STA (23:43)
[2023-03-26 23:44] LABS: BASOPHILS % (AUTO) 0.4 %; EOSINOPHILS # (AUTO) 0.1 10^3/uL (0.0-0.7); EOSINOPHILS % (AUTO) 1.3 %; HCT - HEMATOCRIT 42.2 % (37.0-47.0); LYMPHOCYTES # (AUTO) 1.2 10^3/uL (1.5-3.5); LYMPHOCYTES % (AUTO) 11.7 %; MEAN CORPUSCULAR HGB CONC 33.2 g/dL (32.0-36.0); MEAN CORPUSCULAR VOLUME 93.6 fL (81.0-99.0); MEAN PLATELET VOLUME 8.9 fL (7.9-10.8); MONOCYTES # (AUTO) 0.7 10^3/uL (0.0-1.0); MONOCYTES % (AUTO) 6.4 %; NEUTROPHILS # (AUTO) 8.3 10^3/uL (1.5-6.6); PLT - PLATELET COUNT 299 10^3/uL (130-450); RED BLOOD COUNT 4.51 10^6/uL (4.20-5.40); WHITE BLOOD COUNT 10.3 x10^3/uL (4.8-10.8)
[2023-03-27 00:01] LABS: ALBUMIN 4.2 g/dL (3.2-5.5); ALBUMIN/GLOBULIN RATIO 1.2 (1.0-2.2); BILIRUBIN,TOTAL 0.3 mg/dL (0.2-1.0); CALCIUM 9.2 mg/dL (8.5-10.3); CREATININE 0.8 mg/dL (0.6-1.3); POTASSIUM 3.5 mmol/L (3.5-4.5); TOTAL PROTEIN 7.6 g/dL (6.4-8.9)
[2023-03-27 00:06] LABS: BILIRUBIN,URINE NEGATIVE (NEGATIVE); GLUCOSE, URINE (UA) NEGATIVE (NEGATIVE); KETONES,URINE (UA) NEGATIVE (NEGATIVE); LEUKOCYTE ESTERASE, URINE NEGATIVE (NEGATIVE); NITRITE,URINE NEGATIVE (NEGATIVE); OCCULT BLOOD,URINE NEGATIVE (NEGATIVE); PROTEIN,URINE TRACE mg/dL (NEGATIVE); UROBILINOGEN,URINE 0.2 (NORMAL) E.U./dL (NORMAL)
[2023-03-27 00:07] LABS: CLARITY,URINE CLEAR (CLEAR)
[2023-03-27] MEDS: iohexoL-300 100 ML VIAL IVP ONE (00:27)
--- NOTE | 2023-03-27 01:19 | CT Report ---
PROCEDURE: Abdomen/Pelvis W INDICATIONS: RLQ pain/tenderness CONTRAST: omni 300, 100mls TECHNIQUE: After the administration of intravenous contrast, a CT scan of the abdomen and pelvis was performed. Images were recorded and evaluated at appropriate window settings. Reformats: coronal and sagittal. F or radiation dose reduction, the following was used: automated exposure control, adjustment of mA and /or kV according to patient size. COMPARISON: CT abdomen pelvis 02/15/2023. FINDINGS: Image quality: Excellent. Lung bases and heart: Mild atelectasis. No pleural effusion. Liver: No solid mass. Hepatic steatosis. Gallbladder and biliary tree: No radiopaque stones or wall thickening. No biliary dilation. Spleen: No splenomegaly. Pancreas: No pancreatic ductal dilation. Adrenals: No adrenal nodule. Kidneys and ureters: No hydronephrosis. No renal cystic lesion which requires follow up. No solid mas s. Soft edema adjacent to the right kidney. Kidneys enhance symmetrically. Tiny right renal cyst. Bowel and peritoneum: No bowel distension. No pathologic free fluid. Diverticulosis. The appendix is not dilated. Lymph nodes: No central or retroperitoneal adenopathy. Vessels: No infrarenal aortic aneurysm. PELVIS Reproductive organs: Uterus is absent. Bladder: No stone. Pelvic lymph nodes: No pelvic adenopathy by size criteria. Bones: No aggressive osseous abnormality. Other: No significant ventral or inguinal hernia. IMPRESSION: No acute abnormality identified. No free fluid. The appendix is not dilated. Reviewed by: Wei Singh MD on 03/27/2023 1:17 AM RUST Approved by: Wei Singh MD on 03/27/2023 1:17 AM PST Station ID: [id number]
[2023-03-27] MEDS: CYCLOBENZAPRINE 10 MG TABLET PO STA ×2 (02:19→11:49)
[2023-03-27] MEDS: DEXAMETHASONE 10 MG/ML VIAL IVP STA (02:20)
[2023-03-27] MEDS: MORPHINE 2 MG/ML CARPUJECT IVP STA ×2 (02:20→09:10)
[2023-03-27] MEDS: oxyCODONE 5 MG TABLET PO STA ×2 (06:22→11:49)
[2023-03-27] MEDS: LIDOCAINE PATCH 4% TOP STA (06:24)
[2023-03-27] MEDS: ONDANSETRON 4 MG/2 ML VIAL IVP STA (06:24)
--- NOTE | 2023-03-27 09:39 | ED Physician Documentation ---
ED Addendum - Addendum Addendum: 03/27/23 Patient received in signout. She presented with lower back pain which has been intractable. Awaiting MRI. I evaluated the patient at the bedside this morning. She reports that the pain seems to be more localized in the center now. Good distal pulses. Able to release legs bilaterally. Patient requesting additional pain medication. Reports that the morphine did help her. Patient underwent MRI which does not show any emergent findings. IMPRESSION: 1. No acute/emergent process. 2. Multilevel degenerative disc and facet disease, in addition to epidural lipomatosis and ligamentum flavum hypertrophy. 3. Multilevel canal stenoses, worst at L4-L5 where there is moderate canal stenosis. 4. Lateral recess stenosis at L4-L5 and L5-S1 as described above with associated nerve root compression/abutment as above. Recommend correlation with clinical symptoms to ascertain relevance of these findings. 5. Five lumbar type vertebral bodies were presumed for the purposes of the current report. Correlation with plainfilms for numbering purposes is recommended prior to any lumbar spinal intervention. She was able to ambulate with a walker here and pain it does appear to be improved. Discussed continued treatment for low back pain and sciatica. Understands the importance of close follow-up.Patient was given copies of her MRI as well as CT results. Patient understands concerning symptoms to return for. Departure - Departure Disposition: 01 Home, Self Care Clinical Impression: Low back pain, Sciatica Condition: Stable Instructions: ED Sciatica Prescriptions: predniSONE [Deltasone] 20 mg PO [id number] #21 tab Cyclobenzaprine [Flexeril] 10 mg PO TID PRN #20 tablet PRN Reason: Spasms Lidocaine Patch 5% [Lidoderm Patch] 1 patch TOP DAILY PRN #10 patch PRN Reason: pain Oxycodone HCl/Acetaminophen [Percocet 5-325 mg Tablet] 1 each PO Q6H PRN #14 tablet PRN Reason: pain Comments: Your MRI shows some compression on nerve roots causing symptoms of sciatica. I am sending prescriptions for narcotic pain medication, muscle relaxers, lidocaine patch and a course of steroids to [facility] in [place]. I would recommend follow-up with your primary care provider as sometimes she may need physical therapy to help you with your pain. I am prescribing a short course of narcotic pain medication for you. These are potentially dangerous and addictive medications that should be used carefully. These medications may constipate you. Take an dgxf-atl-ssneneh stool softener (docusate) twice daily with plenty of water while taking these medications. If you go 24 hours without a bowel movement, take cbgi-pcr-stegtuh miralax, per package instructions. Do not drink or drive while taking these medications. If you received narcotic or sedating medications while in the emergency department, do not drive for 24 hours. Store this medication in a safe, secure place and out of reach of children. It is a violation of federal law to give or sell this medication to another person or to use in a manner other than prescribed. The ED will not refill narcotic prescriptions, including prescriptions lost or stolen. To dispose of unwanted medications: 1. [facility] [address] in [place] has a medication drop box. They accept prescription medications (in pill form) Sunday through Sunday 9:00 a.m. to 5:00 p.m. 2. The [facility] [employer] accepts prescription medications (in pill form only) for disposal year round. Call for more information. 3. Contact the [facility] for the next [employer] sponsored prescription drug collection event. , [phone], or [phone]; Note that many narcotic pain relievers also contain Tylenol/acetaminophen. Please ensure that your total dose of acetaminophen from all sources does not exceed 3 g (3000 mg) per day. MRI IMPRESSION: 1. No acute/emergent process. 2. Multilevel degenerative disc and facet disease, in addition to epidural lipomatosis and ligamentum flavum hypertrophy. 3. Multilevel canal stenoses, worst at L4-L5 where there is moderate canal stenosis. 4. Lateral recess stenosis at L4-L5 and L5-S1 as described above with associated nerve root compression/abutment as above. Recommend correlation with clinical symptoms to ascertain relevance of these findings. 5. Five lumbar type vertebral bodies were presumed for the purposes of the current report. Correlation with plainfilms for numbering purposes is recommended prior to any lumbar spinal intervention. Discharge Date/Time: 03/27/23 13:20
--- NOTE | 2023-03-27 11:03 | MRI Report ---
PROCEDURE: LUMBAR SPINE WO INDICATIONS: severe low back pain, RLE weakness TECHNIQUE: Noncontrast sagittal T1 spin echo and T2 fast echo, sagittal STIR, axial T1 and T2 fast spin echo thr ough the lumbar spine. In cases with scoliosis, additional coronal T2 fast spin echo may be performe d. COMPARISON: None. FINDINGS: Image quality: Degraded by motion artifact. Alignment and Curvature: No plain films are available for comparison. Thus, for numbering purposes, 5 lumbar type vertebral bodies will be presumed for the current report. This should be confirmed with plain film correlation prior to any lumbar spinal intervention. There is loss of normal lumbar lordo sis. Bone Marrow: Marrow is of normal overall signal. No acute vertebral body compression fractures. Mi ld reactive signal throughout the endplates of the lumbar lower thoracic spine. Spinal Cord: Conus medullaris terminates at the T12-L1 disc space level. Visualized cord demonstrat es normal signal and size. Paraspinous Soft Tissues: No paravertebral masses. T12-L1: Mild disc desiccation and diffuse disc bulge. Mild facet and ligament flavum hypertrophy. No significant canal nor foraminal stenosis. L1-L2: Mild disc desiccation and diffuse disc bulge with small superimposed right posterolateral p rotrusion. Mild facet and ligament flavum hypertrophy. Mild epidural lipomatosis. Mild canal stenosis . Mild right foraminal stenosis. No left foraminal stenosis. L2-L3: Mild disc desiccation. Mild facet and ligament flavum hypertrophy. Mild epidural lipomatosi s. Mild canal stenosis. Mild bilateral foraminal stenosis. L3-L4: Mild disc height loss and desiccation. Mild diffuse disc bulge. Mild facet and ligament flav um hypertrophy. Mild upper lipomatosis. Mild canal stenosis. Moderate bilateral foraminal stenosis. L4-L5: Mild disc desiccation and diffuse disc bulge. Mild facet and ligament flavum hypertrophy. Mo derate canal stenosis. Moderate subarticular foraminal stenosis bilaterally. Lateral recess stenosis is present bilaterally with possible L5 nerve root compression bilaterally. L5-S1: Mild disc desiccation and diffuse disc bulge with superimposed small right posterolateral pr otrusion. Mild bilateral facet hypertrophy. Mild canal stenosis. Moderate subarticular foraminal sten osis bilaterally. The protrusion abuts the right S1 nerve root within the lateral recess. IMPRESSION: 1. No acute/emergent process. 2. Multilevel degenerative disc and facet disease, in addition to epidural lipomatosis and ligamentum flavum hypertrophy. 3. Multilevel canal stenoses, worst at L4-L5 where there is moderate canal stenosis. 4. Lateral recess stenosis at L4-L5 and L5-S1 as described above with associated nerve root compressi on/abutment as above. Recommend correlation with clinical symptoms to ascertain relevance of these fi ndings. 5. Five lumbar type vertebral bodies were presumed for the purposes of the current report. Correlati on with plainfilms for numbering purposes is recommended prior to any lumbar spinal intervention. Reviewed by: Katlyn Garner MD on 03/27/2023 11:01 AM PST Approved by: Katlyn Garner MD on 03/27/2023 11:01 AM PST Station ID: [id number]
[2023-03-27] MEDS: KETOROLAC 15 MG/ML VIAL IVP STA (11:49)
[2023-03-27 12:56] VITALS: BP 168/70; O2SAT 98
== END 2023-03-27 13:20 | disposition home or self-care (01) ==
LOC: EDUNIT# → ED 22:27
DX: M54.50 Low back pain, unspecified (principal); M54.30 Sciatica, unspecified side; I10 Essential (primary) hypertension
CPT/HCPCS: 36415; 72148; 74177; 80053; 81003; 83690; 85025; 96374; 96375; 96376; 99284; A9270; Q9967; 81001; 87086

== ENCOUNTER 2023-05-27 00:58 | Emergency (ER) | payer MEDICARE ==
[2023-05-27 01:18] VITALS: BP 203/81; O2SAT 99
[2023-05-27 01:33] LABS: BILIRUBIN,URINE NEGATIVE (NEGATIVE); GLUCOSE, URINE (UA) 100 mg/dL (NEGATIVE); KETONES,URINE (UA) NEGATIVE (NEGATIVE); LEUKOCYTE ESTERASE, URINE LARGE (NEGATIVE); NITRITE,URINE POSITIVE (NEGATIVE); OCCULT BLOOD,URINE LARGE (NEGATIVE); PROTEIN,URINE 100 mg/dL (NEGATIVE); UROBILINOGEN,URINE 1 (NORMAL) E.U./dL (NORMAL)
[2023-05-27 01:34] LABS: CLARITY,URINE CLEAR (CLEAR)
[2023-05-27 01:57] LABS: BACTERIA,URINE Rare /HPF (None Seen); RBC,URINE 0-5 /HPF (0-5); SQUAMOUS EPITHELIAL CELL,UR RARE Squamous (<= Few); WBC CLUMPS,URINE PRESENT
--- NOTE | 2023-05-27 02:57 | ED Physician Documentation ---
PD HPI FEMALE - Stated complaint Stated Complaint: - Chief complaint Chief Complaint: UTI - History obtained from History obtained from: Patient - History of Present Illness Timing - onset: Enter time (0800), Yesterday Timing - duration: Days (1) Timing - details: Gradual onset, Still present Associated symptoms: Dysuria, Urinary frequency Contributing factors: Other (hx of frequent UTI) Similar symptoms before: Diagnosis (UTI) Recently seen: Not recently seen - Additional information Additional information: Viktoriya De La Cruz is a 68-year-old female with a history of frequent urinary tract infections who has developed symptoms of urinary tract infection yesterday morning. She is taken some Pyridium and has not had relief as yet. She is usually able to take Cipro which works well for her. Review of Systems Constitutional: denies: Fever, Chills, Myalgias Ears: denies: Ear pain Nose: denies: Congestion Throat: denies: Sore throat Respiratory: denies: Cough GI: reports: Nausea. denies: Abdominal Pain, Vomiting, Constipation, Diarrhea : reports: Dysuria, Frequency Skin: denies: Rash Musculoskeletal: denies: Neck pain, Back pain, Extremity pain Neurologic: denies: Generalized weakness, Focal weakness, Numbness PD PAST MEDICAL HISTORY - Past Medical History Cardiovascular: Hypertension Respiratory: None Neuro: None Endocrine/Autoimmune: HyPOthyroidism GI: None : Chronic bladder infection, Other - Past Surgical History Past Surgical History: Yes /[employer]: section, 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 - Present Medications Home Medications: Ambulatory Orders Medication Instructions Recorded Confirmed Levothyroxine [Synthroid] 88 mcg PO DAILY 06/03/15 03/26/23 hydroCHLOROthiazide [Hydrodiuril] 12.5 mg PO DAILY 08/20/20 03/27/23 HYDROcod/ACETAM 5/325 [Lake 5/325] 1 ea PO Q6H PRN #12 tablet 02/15/23 Meloxicam [Mobic] 7.5 mg PO BID 10 Days #20 tablet 02/15/23 Aspirin [Aspirin EC] 81 mg PO DAILY 03/26/23 03/26/23 Cyclobenzaprine [Flexeril] 10 mg PO TID PRN #20 tablet 03/27/23 Lidocaine Patch 5% [Lidoderm Patch] 1 patch TOP DAILY PRN #10 patch 03/27/23 Oxycodone HCl/Acetaminophen 1 each PO Q6H PRN #14 tablet 03/27/23 [Percocet 5-325 mg Tablet] predniSONE [Deltasone] 20 mg PO [id number] #21 tab 03/27/23 Ciprofloxacin HCl [Cipro] 500 mg PO BID #14 tablet 05/27/23 - Allergies Allergies/Adverse Reactions: Allergies Allergy/AdvReac Type Severity Reaction Status Date / Time codeine AdvReac Emesis Verified 05/27/23 02:01 - Social History Does the pt smoke?: No Smoking Status: Never smoker Does the pt drink ETOH?: Yes Does the pt have substance abuse?: No - Immunizations Immunizations are current?: No - POLST Patient has POLST: No PD ED PE NORMAL - Vitals Vital signs reviewed: Yes (hypertensive ) - General General: Alert and oriented X 3, No acute distress, Well developed/nourished - HEENT HEENT: Atraumatic, PERRL, EOMI - Respiratory Respiratory: No respiratory distress - Back Back: No CVA TTP, No spinal TTP - Derm Derm: Normal color, Warm and dry, No rash - Extremities Extremities: No deformity, No edema - Neuro Neuro: Alert and oriented X 3, 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, No motor deficit, No sensory deficit, Normal speech Eye Opening: Spontaneous Motor: Obeys Commands Verbal: Oriented GCS Score: 15 - Psych Psych: Normal mood, Normal affect Results - Vitals Vitals: Vital Signs - 24 hr 05/27/23 01:13 Temperature 36.3 C L Heart Rate 78 Respiratory 18 Rate Blood Pressure 203/81 H O2 Saturation 99 Oxygen O2 Source Room air - Labs Labs: Laboratory Tests 05/27/23 01:17 Urine Color ORANGE Urine Clarity CLEAR Urine pH 6.0 Ur Specific [place] <=1.005 Urine Protein 100 H Urine Glucose (UA) 100 H Urine Ketones NEGATIVE Urine Occult Blood LARGE H Urine Nitrite POSITIVE H Urine Bilirubin NEGATIVE Urine Urobilinogen 1 (NORMAL) Ur Leukocyte Esterase LARGE H Urine RBC 0-5 Urine WBC 11-25 H Urine WBC Clumps PRESENT Ur Squamous Epith Cells RARE Squamous Urine Bacteria Rare Urine Culture Comments INDICATED PD Medical Decision Making - ED course Complexity details: reviewed old records, reviewed results, re-evaluated patient, considered differential, d/w patient Reviewed Lab Results: We reviewed a urinalysis showing a specific gravity 1.005 there was protein glucose occult blood nitrite and leukocyte Estrace positive positive. Urine white blood cells were 11-25 white blood cell clumps were present and rare bacteria were present. The specimen did make the grade for culture.I interpreted these laboratory findings to indicate the patient has urinary tract infection with symptoms. ED course: 68-year-old female with urinary urgency frequency dysuria and a urinalysis consistent with acute urinary tract infection. treatment is indicated and she is administered Cipro 500 mg here in the emergency department. Most recent urine culture is from last year and was a sensitive E. coli. Departure - Departure Disposition: Home, Self Care Clinical Impression: Urinary tract infection Qualifiers: Urinary tract infection type: acute cystitis Hematuria presence: without hematuria Qualified Code(s): N30.00 - Acute cystitis without hematuria Condition: Stable Instructions: ED UTI Cystitis Female Follow-Up: Fani Grant ARNP [Primary Care Provider] - Prescriptions: Ciprofloxacin HCl [Cipro] 500 mg PO BID #14 tablet Comments: Viktoriya, today it looks like you have another urinary tract infection. I have E scribed some Cipro to the [facility] in [place]. Forms: PCP List Discharge Date/Time: 05/27/23 03:13
[2023-05-27] MEDS: CIPROFLOXACIN 250 MG TABLET PO STA (03:10)
== END 2023-05-27 03:13 | disposition home or self-care (01) ==
LOC: ED 00:58
DX: N30.00 Acute cystitis without hematuria (principal); I10 Essential (primary) hypertension
CPT/HCPCS: 81001; 87077; 87086; 87181; 99283; A9270

== ENCOUNTER 2023-06-26 12:51 | Outpatient (CLI) | payer MEDICARE ==
--- NOTE | 2023-06-27 10:52 | Mammography Report ---
BILATERAL DIGITAL SCREENING MAMMOGRAM 3D/2D: 06/26/2023 CLINICAL: Routine screening. Comparison is made to exams dated: 03/20/2021 mammogram, 02/28/2019 mammogram, 02/16/2017 mammogram, 11/10/2014 mammogram, and 10/02/2013 mammogram - [facility]. There are scattered areas of fibroglandular density in both breasts (category b / 25%-50% glandular t issue). There is a new oval low density asymmetry with an obscured margin in the right breast at 11 o'clock m iddle depth. No other significant masses, calcifications, or other findings are seen in either breast. IMPRESSION: INCOMPLETE: NEEDS ADDITIONAL IMAGING EVALUATION The new oval low density asymmetry in the right breast is indeterminate. Additional views with possi ble ultrasound are recommended. Based on the Tyrer Cuzick model (a risk assessment model) the patient's lifetime risk is 4.4% and her 10 year risk is 2.4%. According to the ACR, ACS, and NCCN guidelines, an annual breast MRI exam uli g with mammogram is recommended if the patient's lifetime risk is 20% or greater. This exam was interpreted at Station ID: [id number]. NOTE: For mammograms, a report in lay terms will be sent to the patient. Approximately 15% of breast malignancies will not be visualized mammographically. In the management of a palpable breast mass, a negative mammogram must not discourage biopsy of a clinically suspicious lesion. Electronically Signed By: Vanita morales/penrad:06/26/2023 16:58:12 ACR BI-RADS Category 0: Incomplete 3340F PARENCHYMAL PATTERN: (A) - The breast(s) demonstrate(s) scattered fibroglandular densities. BI-RADS CATEGORY: (0) - 0 Mammo and [place] [id number] Immediate follow-up LATERALITY: (B)
== END 2023-06-26 12:52 | disposition home or self-care (01) ==
LOC: DI 12:51
PROVIDERS: ATTEND Registered Nurse
DX: Z12.31 Encounter for screening mammogram for malignant neoplasm of breast (principal); R92.8 Other abnormal and inconclusive findings on diagnostic imaging of breast; R92.323 Mammographic fibroglandular density, bilateral breasts

== ENCOUNTER 2023-07-31 10:47 | Outpatient (CLI) | payer MEDICARE ==
--- NOTE | 2023-08-01 09:13 | Mammography Report ---
UNILATERAL RIGHT DIGITAL DIAGNOSTIC MAMMOGRAM 3D/2D WITH SPOT COMPRESSION: 07/31/2023 CLINICAL: Routine screening. Comparison is made to exams dated: 06/26/2023 mammogram, 03/20/2021 mammogram, 02/28/2019 mammogram, an d 02/16/2017 mammogram - [facility]. There are scattered areas of fibroglandular density in the right breast (category b / 25%-50% glandul ar tissue). There is an oval low density asymmetry with an obscured and circumscribed margin in the right breast at 10 o'clock middle depth. This is seen in additional views. This is more prominent. No other significant masses or calcifications are seen in the breast. IMPRESSION: INCOMPLETE: NEEDS ADDITIONAL IMAGING EVALUATION The oval low density asymmetry in the right breast resembles a lymph node and is indeterminate. An u ltrasound is recommended. Based on the Tyrer Cuzick model (a risk assessment model) the patient's lifetime risk is 4.4% and her 10 year risk is 2.4%. According to the ACR, ACS, and NCCN guidelines, an annual breast MRI exam uli g with mammogram is recommended if the patient's lifetime risk is 20% or greater. This exam was interpreted at Station ID: [id number]. NOTE: For mammograms, a report in lay terms will be sent to the patient. Approximately 15% of breast malignancies will not be visualized mammographically. In the management of a palpable breast mass, a negative mammogram must not discourage biopsy of a clinically suspicious lesion. Electronically Signed By: Selwyn rivera/margaux:07/31/2023 16:45:52 ACR BI-RADS Category 0: Incomplete 3340F PARENCHYMAL PATTERN: (A) - The breast(s) demonstrate(s) scattered fibroglandular densities. BI-RADS CATEGORY: (0) - 0 Ultrasound [id number] Immediate follow-up LATERALITY: (R)
--- NOTE | 2023-08-01 09:14 | Ultrasound Report ---
LIMITED ULTRASOUND OF RIGHT BREAST: 07/31/2023 CLINICAL: Patient returns today to evaluate a focal asymmetry in the right breast. Comparison is made to exams dated: 07/31/2023 mammogram, 06/26/2023 mammogram, 03/20/2021 mammogram, mammogram, and 02/16/2017 mammogram - [facility]. Color flow and real-time ultrasound of the right breast 10 o'clock region were performed. Burkett scale images of the real-time examination were reviewed. There is a benign 0.7 cm x 0.8 cm x 0.2 cm oval lymph node in the right breast at 10 o'clock posterio r depth 6 cm from the nipple. This oval lymph node displays fatty hilum. This correlates with mammo graphy findings. IMPRESSION: BENIGN There is no sonographic evidence of malignancy. The 0.7 cm x 0.8 cm x 0.2 cm oval lymph node in the right breast is benign. Return to annual mammogram screening schedule is recommended. This exam was interpreted at Station ID: [id number]. Electronically Signed By: Selwyn rivera/margaux:07/31/2023 16:46:55 Ultrasound BI-RADS: 2 Benign BI-RADS CATEGORY: (2) - 2 Mammogram [id number] return to screening LATERALITY: (B)
== END 2023-07-31 10:48 | disposition home or self-care (01) ==
LOC: DI 10:47
PROVIDERS: ATTEND Registered Nurse
DX: R92.8 Other abnormal and inconclusive findings on diagnostic imaging of breast (principal); R92.321 Mammographic fibroglandular density, right breast